=== PATIENT | male | born 1995 | race Caucasian/White ===

== ENCOUNTER 2019-08-23 15:29 | Emergency (ER) | payer BC ==
--- NOTE | 2019-08-23 16:46 | UC ---
Skin Complaint HPI - HPI Summary HPI Summary: 23 yo male presents with LEFT leg ?infection. He tells me that 2 days ago he picked at an infected hair to his left thigh. Since that time the area has gotten red, warm, and tender. He has not taken anything OTC for his symptoms. Denies fever, chills, drainage, or hx of MRSA - History of Current Complaint Time Seen by Provider: 08/23/19 16:46 Stated Complaint: LEG COMPLAINT/INFECTION Hx Obtained From: Patient Onset/Duration: Gradual Onset Onset Severity: Mild Current Severity: Moderate Pain Intensity: 5 Pain Scale Used: 0-10 Numeric - Allergy/Home Medications Allergies/Adverse Reactions: Allergies Allergy/AdvReac Type Severity Reaction Status Date / Time No Known Allergies Allergy Verified 08/23/19 16:47 Home Medications: Home Medications Dextroamphetamine/Amphetamine [Adderall Xr 20 mg Capsule] 1 tab QAM 08/23/19 [ History Confirmed 08/23/19] PMH/Surg Hx/FS Hx/Imm Hx - Additional Past Medical History Additional PMH: ADHD - Surgical History Surgical History: None - Family History Known Family History: Positive: None - Social History Occupation: Student Lives: Dormitory/Roommates Alcohol Use: Occasionally Substance Use Type: None Smoking Status (MU): Never Smoked Tobacco Review of Systems All Other Systems Reviewed And Are Negative: No Constitutional: Positive: Negative Skin: Positive: Rash Respiratory: Positive: Negative Cardiovascular: Positive: Negative Gastrointestinal: Positive: Negative Neurological/Mental Status: Positive: Negative Psychological: Positive: Negative Physical Exam - Summary Physical Exam Summary: GENERAL: NAD. WDWN. No pain distress. SKIN: LEFT THIGH: Medial aspect with large ~20.0cm area of erythema, warmth, and mild tenderness. Central 1.5cm area of mild induration and firmness with central scab where infected hair was. CHEST: No accessory muscle use. Breathing comfortably and in no distress. CV: Pulses intact. Cap refill <2seconds NEURO: Alert. PSYCH: Age appropriate behavior. Triage Information Reviewed: Yes Vital Signs: Vital Signs: Temp Pulse Resp BP Pulse Ox 98 F 90 16 130/62 97 08/23/19 16:48 08/23/19 16:48 08/23/19 16:48 08/23/19 16:48 08/23/19 16:48 Vital Signs Reviewed: Yes Course/Dx - Course Course Of Treatment: Abscess with cellulitis. - Diagnoses Provider Diagnosis: Abscess or cellulitis of thigh Discharge ED - Sign-Out/Discharge Documenting (check all that apply): Patient Departure All imaging exams completed and their final reports reviewed: No Studies - Discharge Plan Condition: Stable Disposition: HOME Prescriptions: Cephalexin CAP* [Keflex CAP*] 500 mg PO TID #21 cap Patient Education Materials: Abscess (ED) Referrals: No Primary Care Phys,NOPCP [Primary Care Provider] - Additional Instructions: If you develop a fever, shortness of breath, chest pain, new or worsening symptoms - please call your PCP or go to the ED immediately. If you notice the redness spreading - please return for recheck If there area comes to a "head" please return to have this drained - Billing Disposition and Condition Condition: STABLE Disposition: Home
[2019-08-23 16:52] VITALS: BP 130/62
== END 2019-08-23 16:59 | disposition home or self-care (01) ==
LOC: UCCORT 15:29
DX: L08.89 Other specified local infections of the skin and subcutaneous tissue (principal)
CPT/HCPCS: 99202; G0463

== ENCOUNTER 2019-08-25 07:46 | Emergency (ER) | payer BC ==
[2019-08-25 08:01] VITALS: BP 107/65
--- NOTE | 2019-08-25 09:07 | UC ---
General HPI - HPI Summary HPI Summary: Was seen here on 08/23 for folliciulitis and was given keflex. States he had a similar issue on his testicle that did require an I&D and also had another area that drained with warm compress. states he did not think the keflex helped in the past. took 6 doses and states it is worse. Has not done warm compresses. Is draining. No fevers. Otherwise feels well. Meds; reviewed - History of Current Complaint Chief Complaint: UCSkin Stated Complaint: SKIN COMPLAINT Time Seen by Provider: 08/25/19 08:50 Pain Intensity: 7 - Allergy/Home Medications Allergies/Adverse Reactions: Allergies Allergy/AdvReac Type Severity Reaction Status Date / Time polymyxin B [From Polytrim] Allergy See Comment Verified 08/25/19 07:58 trimethoprim [From Polytrim] Allergy See Comment Verified 08/25/19 07:58 Home Medications: Home Medications Ibuprofen TAB* [Motrin TAB* 800 MG] 800 mg PO ONCE 08/25/19 [History Confirmed 08/25/19] PMH/Surg Hx/FS Hx/Imm Hx Previously Healthy: Yes - Surgical History Surgical History: Yes Surgery Procedure, Year, and Place: testicular cystectomy - Family History Known Family History: Positive: None - Social History Alcohol Use: Occasionally Substance Use Type: None Smoking Status (MU): Never Smoked Tobacco Review of Systems All Other Systems Reviewed And Are Negative: Yes Constitutional: Positive: Negative Physical Exam Triage Information Reviewed: Yes Appearance: Well-Appearing Vital Signs: Initial Vital Signs Temp 98.3 F 08/25/19 07:57 Pulse 88 08/25/19 07:57 Resp 15 08/25/19 07:57 BP 107/65 08/25/19 07:57 Pulse Ox 100 08/25/19 07:57 Vital Signs Reviewed: Yes Eyes: Positive: Conjunctiva Clear Skin: Positive: Other - left lower extremitiy, inner thigh, indurated erythematous lesion that is firm and not fluctuance, not significantly well delinated. drainage noted over abscess Course/Dx - Course Course Of Treatment: Discussed that this is an abscess, likely MRSA Not discrete and firm so suspect I&D would not be successful Is already draining on its own Plan Start Doxycyline as prescribed Continue keflex in addition to doxycycline as prescribed Continue to warm compresses to area Keep area elevated If no improvement with doxycycline and warm compresses after 1-2 days, return to re-evaluation and likely will need incision and drainage If other areas start to have concern for folliculitis start mupicirin Recommend using antibacterial soap - Diagnoses Provider Diagnosis: Abscess, Folliculitis Discharge ED - Sign-Out/Discharge Documenting (check all that apply): Patient Departure All imaging exams completed and their final reports reviewed: No Studies - Discharge Plan Condition: Good Disposition: HOME Prescriptions: DOXYcycline CAP(*) [DOXYcycline 100MG CAP(*)] 100 mg PO BID #20 cap Mupirocin 2% CREAM* [Bactroban 2% CREAM*] 1 applic TOPICAL BID #1 tube Patient Education Materials: Abscess (ED) Forms: *Work Release Referrals: No Primary Care Phys,NOPCP [Primary Care Provider] - Additional Instructions: Start Doxycyline as prescribed Continue keflex in addition to doxycycline as prescribed Continue to warm compresses to area Keep area elevated If no improvement with doxycycline and warm compresses after 1-2 days, return to re-evaluation and likely will need incision and drainage If other areas start to have concern for folliculitis start mupicirin Recommend using antibacterial soap - Billing Disposition and Condition Condition: GOOD Disposition: Home
== END 2019-08-25 09:10 | disposition home or self-care (01) ==
LOC: UCCORT 07:46
DX: L02.416 Cutaneous abscess of left lower limb (principal); L73.9 Follicular disorder, unspecified; Z88.1 Allergy status to other antibiotic agents
CPT/HCPCS: 99212; G0463

== ENCOUNTER 2019-09-17 09:40 | Emergency (ER) | payer BC ==
[2019-09-17 09:54] VITALS: BP 112/64
--- NOTE | 2019-09-17 09:58 | UC ---
Eye Complaint HPI - HPI Summary HPI Summary: 24-year-old male who had a left conjunctivitis approximately 2 days ago, call his primary care provider who called in a prescription of ofloxacin eyedrops. The patient states his left eye has improved however now his right eye has been red with pus drainage. He does wear contact lenses however has not been wearing them the past few days. He denies any change in vision other than mildly blurry. - History of Current Complaint Chief Complaint: UCEye Stated Complaint: EYE COMP Time Seen by Provider: 09/17/19 09:50 Hx Obtained From: Patient Onset/Duration: Gradual Onset Timing: Constant Severity Initially: Mild Severity Currently: Mild Pain Intensity: 3 Location of Injury: Other - No injury Aggravating Factor(s): Contact Lens Alleviating Factor(s): Nothing Associated Signs And Symptoms: Positive: Drainage (Purulent) - Allergies/Home Medications Allergies/Adverse Reactions: Allergies Allergy/AdvReac Type Severity Reaction Status Date / Time polymyxin B [From Polytrim] Allergy See Comment Verified 09/17/19 09:51 trimethoprim [From Polytrim] Allergy See Comment Verified 09/17/19 09:51 Home Medications: Home Medications Ofloxacin 0.3% (Eye Drop) [Ocuflox OPTH 0.3% (Eye Drop)] 1 drop BOTH EYES Q8HR 09/17/19 [History Confirmed 09/17/19] Tobramycin 0.3% OPHTH.PAUL* 1 drop BOTH EYES Q4H 7 Days #1 btl 09/17/19 [Rx] PMH/Surg Hx/FS Hx/Imm Hx Previously Healthy: Yes - Surgical History Surgical History: Yes Surgery Procedure, Year, and Place: testicular cystectomy - Family History Known Family History: Positive: None - Social History Occupation: Student Lives: Dormitory/Roommates Alcohol Use: Occasionally Substance Use Type: None Smoking Status (MU): Never Smoked Tobacco Review of Systems All Other Systems Reviewed And Are Negative: Yes Eyes: Positive: Drainage - Eyes are red but the left has improved in the past 24 hours the right has become red with pus drainage., Eye Redness Is Patient Immunocompromised?: No Physical Exam Triage Information Reviewed: Yes Appearance: Well-Appearing, No Pain Distress, Well-Nourished Vital Signs: Initial Vital Signs Temp 98.2 F 09/17/19 09:50 Pulse 68 09/17/19 09:50 Resp 14 09/17/19 09:50 BP 112/64 09/17/19 09:50 Pulse Ox 99 09/17/19 09:50 Vital Signs Reviewed: Yes Eyes: Positive: Conjunctiva Inflamed, Discharge - Mild yellow purulent drainage right eye. PERRLA, EOMI. ENT: Positive: Pharynx normal, TMs normal, Uvula midline Neck: Positive: Supple, Nontender, No Lymphadenopathy Respiratory: Positive: Lungs clear, Normal breath sounds, No respiratory distress, No accessory muscle use Cardiovascular: Positive: RRR, No Murmur, Pulses Normal, Brisk Capillary Refill Musculoskeletal Exam: Normal Neurological Exam: Normal Psychological Exam: Normal Skin Exam: Normal Eye Complaint Course/Dx - Course Course Of Treatment: Patient is comfortable here. He is to stop the ofloxacin. I'm going to start him on tobramycin however he is definitely to follow-up with an draw bench operator Thursday or Thursday if no improvement. No contact lens use until this is completely cleared. He is to avoid rubbing his eyes as well, practice good handwashing. - Differential Dx/Diagnosis Provider Diagnosis: Bilateral conjunctivitis Discharge ED - Sign-Out/Discharge Documenting (check all that apply): Patient Departure All imaging exams completed and their final reports reviewed: No Studies - Discharge Plan Condition: Fair Disposition: HOME Prescriptions: Tobramycin 0.3% OPHTH.PAUL* 1 drop BOTH EYES Q4H 7 Days #1 btl Patient Education Materials: Conjunctivitis (ED) Referrals: Woo Dave MD [Medical Doctor] - No Primary Care Phys,NOPCP [Primary Care Provider] - Meño Oconnor MD [Medical Doctor] - Additional Instructions: Stop the present eyedrops. No contact lenses until the infection is completely cleared. Definite follow-up with an draw bench operator on Thursday or Thursday if no improvement. Avoid rubbing your eyes - Billing Disposition and Condition Condition: FAIR Disposition: Home
== END 2019-09-17 10:16 | disposition home or self-care (01) ==
LOC: UCCORT 09:40
DX: H10.9 Unspecified conjunctivitis (principal); Z88.1 Allergy status to other antibiotic agents
CPT/HCPCS: 99212; G0463